=== PATIENT | male | born 1930 | race Caucasian/White ===

== ENCOUNTER → 2016-12-26 | Day surgery (SDC) | payer MEDICARE ==
[~2016-12-26] MED LIST: ASTEPRO205.5 MCG/ NS; BAYER ASPIRIN R81 MG PO; BUTALB/APAP/CAF1 TA2 PO; GABAPENTIN100 MG PO; HUMULIN R100 UNITS/ SC; LIDODERM1 EACH TP; MONTELUKAST SOD10 MG PO; MULTIVITAMIN1 TA1 PO; NATURAL FISH1200 MG PO; OMEPRAZOLE40 MG PO; PRAVASTATIN40 MG PO; SERTRALINE 50MG50 MG PO; TAMIFLU 75MG CA75 MG PO; TAMSULOSIN HYD0.4 M1 PO; TRAZODONE HCL50 MG PO; VERAMYST27.5 MCG/A NS; ZESTRIL 2.5MG2.5 MG PO; ZITHROMAX Z PA250 MG PO
--- NOTE | 2016-12-26 14:23 | Pain Management SOAP Note ---
SOAP Note Pain Clinic Subjective: Pleasant 86-year-old male who presents today for a transforaminal lumbar epidural steroid injection. Patient states he's been doing very well since his last injection and has had no pain. Patient wishes to hold off on injection until pain returns. Patient was advised to call the office when pain begins to return. Objective: Awake alert and oriented 3 in no acute distress noted. Flexion extension of lumbar spine somewhat guarded secondary to pain. Motor strength upper lower extreme is normal. Deep tendon reflexes upper lower extremity is normal. There is no gross sensory deficit. Gait is normal. Assessment: Degenerative disc disease lumbar spine multiple levels. Lumbar spinal stenosis. Lumbar facet arthropathy. Lumbar foraminal narrowing. Lumbar radiculopathy symptoms. Plan: Patient will continue to be in contact with us as to when he will need further injected therapy. As of today, he is doing very well without complaint of any radicular symptoms components. at 1970
== END ==
LOC: PM 13:33
DX: M51.36 Other intervertebral disc degeneration, lumbar region (principal)

== ENCOUNTER 2017-02-16 11:02 | Day surgery (SDC) | payer MEDICARE ==
[~2017-02-16] VITALS: Ht 170.2 cm; Wt 95.3 kg
[2017-02-16 11:11] VITALS: BP 151/58
[2017-02-16 11:21] VITALS: BP 151/58
[2017-02-16 11:26] VITALS: BP 118/73
--- NOTE | 2017-02-16 11:45 | Procedure Note ---
Procedure detail Date of procedure: 02/16/17 Anesthesiologist: Mariano Reza M.D. Complications: none Pre-procedure diagnosis: Degenerative disc disease of lumbar spine multiple levels with lumbar radiculopathy symptoms down the RIGHT leg Post-procedure diagnosis: Same Indications for procedure: This patient is a pleasant 86-year-old white male who we are treating for low back pain with RIGHT leg radicular symptoms. He has benefited in the past from transforaminal lumbar epidural steroid injections. We will do a transforaminal lumbar epidural steroid injection today on the RIGHT side at RIGHT L5-S1 level. Procedure detail: L5-S1 transforaminal epidural steroid injection RIGHT side Informed consent was obtained and the risks and benefits of the procedure was explained to the patient. Patient was taken to the procedure room. He was prepped in sterile fashion. C-arm fluoroscopy was used to view the lumbar spine. The skin and subcutaneous tissues were anesthetized using lidocaine. A 22-gauge needle was inserted and advanced just to the RIGHT L5-S1 transforaminal epidural space. Needle placement was confirmed with dye. After this we injected 3 mL of lidocaine 2 percent and Depo-Medrol 40 mg. Patient tolerated the procedure well with no competitions. Plan and disposition: We will follow-up with him in 1 month we'll reevaluate his symptoms at that time. at [id number]
[2017-02-16 12:13] VITALS: BP 109/57
== END 2017-02-16 12:00 | disposition home or self-care (01) ==
LOC: PM 11:02
PROC: 3E0R3BZ Introduction of Anesthetic Agent into Spinal Canal, Percutaneous Approach (ICD-10-PCS; principal; 2017-02-16)
PROC: 3E0R33Z Introduction of Anti-inflammatory into Spinal Canal, Percutaneous Approach (ICD-10-PCS; 2017-02-16)
DX: M51.16 Intervertebral disc disorders with radiculopathy, lumbar region (principal)
CPT/HCPCS: J1040